=== PATIENT | male | born 1985 | race Caucasian/White ===

== ENCOUNTER 2020-07-01 11:18 | Emergency (ER) | payer MEDICAID, OTHER ==
[~2020-07-01] VITALS: Ht 172.7 cm; Wt 76.2 kg
[~2020-07-01 11:18] MED LIST: ACET-8386 PO
[2020-07-01 11:21] VITALS: BP 140/91
[2020-07-01 12:40] VITALS: BP 140/91
== END 2020-07-01 12:42 | disposition home or self-care (01) ==
LOC: MED 11:18
DX: S43.102A Unspecified dislocation of left acromioclavicular joint, initial encounter (principal); Z79.899 Other long term (current) drug therapy; V89.2XXA Person injured in unspecified motor-vehicle accident, traffic, initial encounter; Y93.89 Activity, other specified; Y92.89 Other specified places as the place of occurrence of the external cause; Y99.8 Other external cause status
CPT/HCPCS: 73000; 73030; 99284; Q0092

== ENCOUNTER 2021-08-14 12:23 | Emergency (ER) | payer SELFPAY ==
[~2021-08-14] VITALS: Ht 165.1 cm; Wt 86.2 kg
[2021-08-14 12:30] VITALS: BP 136/85
--- NOTE | 2021-08-14 12:33 | NUR ---
PT IN LOBBY
[2021-08-14] MEDS ORDERED: IBUP-2213 PO (13:49)
--- NOTE | 2021-08-14 14:02 | NUR ---
PER ERMD PT WAS PLACE IN A KNEE SPLINT AND WAS ASSITED ON TO ORLINS.
--- NOTE | 2021-08-14 14:08 | NUR ---
no nursing interventions given
[2021-08-14 14:09] VITALS: BP 153/98
== END 2021-08-14 14:09 | disposition home or self-care (01) ==
LOC: MED 12:23
DX: S83.91XA Sprain of unspecified site of right knee, initial encounter (principal); Z79.899 Other long term (current) drug therapy; W01.0XXA Fall on same level from slipping, tripping and stumbling without subsequent striking against object, initial encounter; Y93.89 Activity, other specified; Y92.89 Other specified places as the place of occurrence of the external cause; Y99.8 Other external cause status
CPT/HCPCS: 29505; 73562; 99283

== ENCOUNTER 2021-09-03 14:10 | Emergency (ER) | payer SELFPAY ==
[~2021-09-03] VITALS: Ht 165.1 cm; Wt 86.2 kg
[~2021-09-03 14:10] MED LIST changes: +IBUP-2213 PO
[2021-09-03 14:16] VITALS: BP 121/74
--- NOTE | 2021-09-03 14:50 | NUR ---
DR MCKNIGHT AT BEDSIDE EVALUATING PT
--- NOTE | 2021-09-03 15:15 | NUR ---
Patient discharged with v/s stable. Written and verbal after care instructions given and explained. Patient verbalized understanding. Ambulatory with steady gait. All questions addressed prior to discharge. Advised to follow up with PMD.
[2021-09-03 15:54] VITALS: BP 121/74
== END 2021-09-03 15:15 | disposition home or self-care (01) ==
LOC: MED 14:10
DX: S83.411A Sprain of medial collateral ligament of right knee, initial encounter (principal); S83.512A Sprain of anterior cruciate ligament of left knee, initial encounter; S83.242A Other tear of medial meniscus, current injury, left knee, initial encounter; W01.0XXA Fall on same level from slipping, tripping and stumbling without subsequent striking against object, initial encounter; Y93.89 Activity, other specified; Y92.89 Other specified places as the place of occurrence of the external cause; Y99.8 Other external cause status
CPT/HCPCS: 99282

== ENCOUNTER 2024-05-08 11:32 | Emergency (ER) | payer OTHER ==
[~2024-05-08] VITALS: Ht 165.1 cm; Wt 90.7 kg
[~2024-05-08 11:32] MED LIST changes: -ACET-8386 PO; +ACET-8905 PO
[2024-05-08 12:01] VITALS: BP 108/61; PULSE 78; RESP 18; TEMP 98.3; O2SAT 99
[2024-05-08] MEDS: KETOROLAC 30 MG/ML VIAL IM ONE (12:33)
== END 2024-05-08 13:06 | disposition home or self-care (01) ==
LOC: MED 11:51
DX: S83.91XA Sprain of unspecified site of right knee, initial encounter (principal); Z79.1 Long term (current) use of non-steroidal anti-inflammatories (NSAID); W18.39XA Other fall on same level, initial encounter; Y93.89 Activity, other specified; Y92.89 Other specified places as the place of occurrence of the external cause; Y99.8 Other external cause status
CPT/HCPCS: 29505; 73562; 96372; 99283; J1885; Q0092

== ENCOUNTER 2024-05-19 10:21 | Emergency (ER) | payer OTHER ==
[~2024-05-19] VITALS: Ht 165.1 cm; Wt 95.3 kg
[2024-05-19 10:30] VITALS: BP 112/72; PULSE 88; RESP 16; TEMP 98.1; O2SAT 98
[2024-05-19] MEDS ORDERED: IBUP-2213 PO (12:09)
[2024-05-19] MEDS ORDERED: CEPH-588 PO (12:09)
[2024-05-19 12:44] VITALS: BP 134/70; PULSE 72; RESP 18; TEMP 97.3; O2SAT 98
== END 2024-05-19 10:51 | disposition home or self-care (01) ==
LOC: MED 10:21
DX: L03.115 Cellulitis of right lower limb (principal); F12.90 Cannabis use, unspecified, uncomplicated; Z98.890 Other specified postprocedural states; Z79.899 Other long term (current) drug therapy
CPT/HCPCS: 82948; 99283

== ENCOUNTER 2024-07-13 16:07 | Emergency (ER) | payer OTHER ==
[~2024-07-13] VITALS: Ht 165.1 cm; Wt 95.3 kg
[~2024-07-13 16:07] MED LIST changes: +CEPH-588 PO
[2024-07-13 16:21] VITALS: BP 129/90; PULSE 97; RESP 18; TEMP 98.3; O2SAT 97
[2024-07-13] MEDS ORDERED: ACET-8905 PO (17:10)
[2024-07-13] MEDS ORDERED: [UNRECOGNIZED DRUG - CODE] PO (17:10)
[2024-07-13] MEDS ORDERED: BACTO TP (17:10)
[2024-07-13] MEDS ORDERED: BACITRACIN OINT 500 UNITS/GM PKT TP ONE (17:34)
[2024-07-13] MEDS: BACITRACIN OINT 500 UNITS/GM PKT TP ONE (17:46)
[2024-07-13] MEDS: HYDROcodone/APAP 5/325 MG 1 TAB TAB PO ONE (17:46)
[2024-07-13] MEDS: MUPIROCIN 2% OINT 22 GM TUBE TP SCH (17:47)
--- NOTE | 2024-07-13 18:30 | NUR ---
Patient discharged with v/s stable. Written and verbal after care instructions given FOR CELLULITIS,HOW TO CHANGE YOUR WOUND DRESSING Patient alert, oriented and verbalized understanding of instructions. Ambulatory with steady gait. All questions addressed prior to discharge. ID band removed. Patient advised to follow up with PMD. Rx of HYDROCODNE,BACTROBAN,CLINDAMYCIN given. Opportunity to ask questions provided and answered.
== END 2024-07-13 18:30 | disposition home or self-care (01) ==
LOC: MED 16:07
DX: L03.115 Cellulitis of right lower limb (principal); Z79.2 Long term (current) use of antibiotics; Z79.1 Long term (current) use of non-steroidal anti-inflammatories (NSAID); Z79.899 Other long term (current) drug therapy
CPT/HCPCS: 99283